=== PATIENT | female | born 1955 | race Caucasian/White ===

== ENCOUNTER → 2017-04-23 | Outpatient (CLI) | payer OTHER ==
[~2017-04-23] MED LIST: CELE40TA PO; FLEC100T PO; LEVO112T2 PO; LIPI40TA PO; SELE200T17 PO
[2017-04-23 09:06] LABS: AUTOMATED NEUTROPHIL # 2.1 TH/MM3 (1.8-7.7); EOSINOPHIL # 0.1 TH/MM3 (0-0.4); EOSINOPHIL % 3.5 % (0.0-4.0); HEMATOCRIT 36.3 % (35.0-46.0); HEMOGLOBIN 12.3 GM/DL (11.6-15.3); LYMPH % 31.7 % (9.0-44.0); LYMPHOCYTE # 1.3 TH/MM3 (1.0-4.8); MEAN CELL VOLUME 94.8 FL (80.0-100.0); MEAN CORPUSCULAR HEMOGLOBIN 32.2 PG (27.0-34.0); MEAN CORPUSCULAR HGB CONC 33.9 % (32.0-36.0); MEAN PLATELET VOLUME 8.6 FL (7.0-11.0); MONOCYTE # 0.5 TH/MM3 (0-0.9); NEUT % 51.8 % (16.0-70.0); PLATELET COUNT 198 TH/MM3 (150-450); RED BLOOD COUNT 3.83 MIL/MM3 (4.00-5.30); RED CELL DISTRIBUTION WIDTH 13.2 % (11.6-17.2)
[2017-04-23 09:31] LABS: ALBUMIN 3.9 GM/DL (3.4-5.0); AST (GOT) 14 U/L (15-37); BICARBONATE 30.4 MEQ/L (21.0-32.0); BLOOD UREA NITROGEN 14 MG/DL (7-18); CHLORIDE 105 MEQ/L (98-107); CREATININE 0.69 MG/DL (0.50-1.00); GLOMERULAR FILTRATION RATE 87 ML/MIN (>89); GLUCOSE,FASTING 98 MG/DL (74-99); SODIUM (NA) 139 MEQ/L (136-145)
[2017-04-23 09:34] LABS: ALKALINE PHOSPHATASE 86 U/L (45-117); ALT (GPT) 21 U/L (10-53); TOTAL BILIRUBIN ADULT 0.3 MG/DL (0.2-1.0); TOTAL PROTEIN 7.4 GM/DL (6.4-8.2)
== END ==
LOC: CPRE 08:41
PROVIDERS: ATTEND Orthopaedic Surgery
DX: Z01.812 Encounter for preprocedural laboratory examination (principal); M76.62 Achilles tendinitis, left leg
CPT/HCPCS: 36415; 80053; 85025

== ENCOUNTER → 2017-05-13 | Outpatient (CLI) | payer OTHER ==
--- NOTE | 2017-05-14 10:20 | EKG ---
Date Performed: 05/13/2017 Time Performed: 14:10:56 PTAGE: 61 years EKG: Sinus rhythm with PAC(s). rSr'(V1) - probable normal variant ST junctional depression is nonspecific Borderline E CG NO PREVIOUS TRACING DOCTOR: Junior Hendricks Interpretating Date/Time 05/14/2017 10:19:39
== END ==
LOC: HCAV 13:44
PROVIDERS: ATTEND Orthopaedic Surgery
DX: M76.62 Achilles tendinitis, left leg (principal); R94.31 Abnormal electrocardiogram [ECG] [EKG]
CPT/HCPCS: 93005

== ENCOUNTER → 2017-05-21 | Day surgery (SDC) | payer OTHER ==
[~2017-05-21] MED LIST changes: +ACETAMINOPHEN/HYDROcodone 325 MG/5 MG TAB PO; -CELE40TA PO; +DEXAMETHASONE SOD PHOS 4 MG/ML VIAL IV; +DO NOT ADM ANY ANTICOAGULANT DRUGS; -FLEC100T PO; +GLYCOPYRROLATE 1 MG/5 ML SYRINGE IV PUSH; +LACTATED RINGER'S 1000 ML INJ 1,000 ML IV; -LEVO112T2 PO; +LIDOCAINE HCL 1% PF 5 ML SYRINGE OTHER; -LIPI40TA PO; +METOPROLOL TARTRATE 25 MG TAB PO; +MIDAZOLAM HCL 2 MG/2 ML VIAL; +MORPHINE SULFATE 4 MG/ML INJ IV PUSH; +NEOSTIGMINE 5 MG/5 ML SYRINGE IV PUSH; +ONDANSETRON HCL 4 MG/2 ML VIAL IV; +ONDANSETRON HCL 4 MG/2 ML VIAL IV PUSH; +PROPOFOL 200 MG/20 ML AMP IV; +ROCURONIUM INJ 50 MG/5 ML SYRINGE IV PUSH; -SELE200T17 PO; +SODIUM CHLORID 0.9% 500 ML IV
[2017-05-21] MEDS: CHLORHEXIDINE GLUCONATE 2 % 1 PACK (2 CLOTHS) TOPICAL (06:00)
[2017-05-21] MEDS: POVIDONE IODINE 7.5% SCRUB 118 ML BOTTLE TOPICAL (06:00)
[2017-05-21] MEDS: POVIDONE IODINE 5% (ANTISEPSIS KIT) 4 APPLICATIONS EACH NARE (06:15)
[2017-05-21] MEDS: LACTATED RINGER'S 1000 ML IV (06:15)
[2017-05-21] MEDS: ceFAZolin 2 GM PREMIX 50 ML IV (06:45)
[2017-05-21] MEDS: VANCOMYCIN 1000 MG/NS 250 ML (for <70 kg) IV (06:59)
== END | disposition home or self-care (01) ==
LOC: HSDC 05:33
DX: M76.62 Achilles tendinitis, left leg (principal); M92.72 Juvenile osteochondrosis of metatarsus, left foot; I10 Essential (primary) hypertension
CPT/HCPCS: 01480; 73620-52; 76000